=== PATIENT | male | born 1950 ===

== ENCOUNTER 2018-12-28 12:46 | Inpatient (IN) | payer MEDICAID, MEDICARE, OTHER ==
[~2018-12-28] VITALS: Ht 172.7 cm; Wt 106.0 kg
[~2018-12-28 12:46] MED LIST: LEVO25TA9 PO; LISI-662 PO; METF-960 PO; SERT50TA12 PO; SUCR1TAB PO
[2018-12-28 13:18] LABS: BASOPHILS % (AUTO) 1.3 % (0.0-2.0); EOSINOPHILS % (AUTO) 4.4 % (1.0-6.0); HEMATOCRIT 37.8 % (41-53); HEMOGLOBIN 12.3 g/dL (13.5-17.5); LYMPHOCYTES # (AUTO) 1.2 K/uL (1.0-4.8); LYMPHOCYTES % (AUTO) 18.8 % (22.0-44.0); MEAN CORPUSCULAR HEMOGLOBIN 28.8 pg (26.0-34.0); MEAN CORPUSCULAR HGB CONC 32.6 G/dL (31.0-37.0); MEAN CORPUSCULAR VOLUME 88 fL (80-100); MONOCYTES # (AUTO) 0.8 K/uL (0.1-1.0); MONOCYTES % (AUTO) 12.7 % (2.0-9.0); NEUTROPHILS # (AUTO) 3.9 K/uL (1.8-7.7); NEUTROPHILS % (AUTO) 62.8 % (40.0-70.0); PLATELET COUNT (AUTO) 231 K/uL (150-450); RED BLOOD CELL COUNT(AUTO) 4.29 MIL/uL (4.50-5.90); RED CELL DISTRIBUTION WIDTH 15.1 % (11.5-14.5)
[2018-12-28] MEDS ORDERED: CARV3 PO (13:20)
[2018-12-28] MEDS ORDERED: FINA5TAB41 PO (13:20)
[2018-12-28] MEDS ORDERED: EXEN2PEN SQ (13:20)
[2018-12-28] MEDS ORDERED: HYDR25TA PO (13:20)
[2018-12-28] MEDS ORDERED: LEVE500T53 PO (13:20)
[2018-12-28] MEDS ORDERED: LIRA0.6P SQ (13:20)
[2018-12-28] MEDS ORDERED: LOVA20 PO (13:20)
[2018-12-28] MEDS ORDERED: FURO20 PO (13:20)
[2018-12-28] MEDS ORDERED: DOXY50CA7 PO (13:20)
[2018-12-28] MEDS ORDERED: LISI-662 PO (13:20)
[2018-12-28 13:39] LABS: ANION GAP 6 mmol/L (8-16); B-TYPE NATRIURETIC PEPTIDE 31 pg/mL (0-100); CALCIUM, TOTAL 9.1 mg/dL (8.8-10.5); CARBON DIOXIDE 27 mmol/L (22-29); CHLORIDE 100 mmol/L (98-107); CREATININE 1.92 mg/dL (0.60-1.30); GLOMERULAR FILTR. RATE CALC 35 mL/min (>60); GLUCOSE,RANDOM 141 mg/dL (70-110); SODIUM SERUM 133 mmol/L (136-145); UREA NITROGEN, BLOOD 41 mg/dL (7-18)
[2018-12-28 13:51] LABS: ALANINE AMINOTRANSFERASE 49 U/L (12-78); ALBUMIN 2.7 g/dL (3.4-5.0); ALKALINE PHOSPHATASE 104 U/L (46-116); ASPARTATE AMINOTRANSFERASE 31 U/L (15-37); BILIRUBIN,TOTAL 0.3 mg/dL (0.1-1.0); TOTAL PROTEIN, SERUM 7.3 g/dL (6.4-8.2)
[2018-12-28 14:48] LABS: APPEARANCE,URINE CLOUDY (CLEAR); BILIRUBIN,URINE NEGATIVE (NEGATIVE); GLUCOSE, URINE (UA) NEGATIVE (NEGATIVE); KETONES,URINE NEGATIVE (NEGATIVE); LEUKOCYTE ESTERASE ,URINE MODERATE (NEGATIVE); NITRATE,URINE NEGATIVE (NEGATIVE); OCCULT BLOOD,URINE LARGE (NEGATIVE); PROTEIN,URINE SEE CONFIRM (NEGATIVE); UROBILINOGEN,URINE 0.2 mg/dL (<=1.0)
[2018-12-28 14:50] LABS: AMPHET/METH SCREEN,URINE NEGATIVE (NEGATIVE); BARBITURATE SCREEN, URINE NEGATIVE (NEGATIVE); BENZODIAZEPINES SCREEN,URINE NEGATIVE (NEGATIVE); CANNABINOID SCREEN,URINE NEGATIVE (NEGATIVE); COCAINE SCREEN,URINE NEGATIVE (NEGATIVE); METHADONE SCREEN, URINE NEGATIVE (NEGATIVE); OPIATE SCREEN,URINE NEGATIVE (NEGATIVE)
[2018-12-28 14:56] LABS: SULFOSALICYLIC ACID,URINE 1+ (Negative)
[2018-12-28 15:01] LABS: RBC,URINE >100 /HPF (0-2)
[2018-12-28 15:02] LABS: BACTERIA,URINE None Seen /HPF (None Seen); SQUAMOUS EPITHELIAL CELL,UR Few /LPF (None Seen); YEAST,URINE Many /HPF (None Seen)
[2018-12-28 15:03] LABS: PHENCYCLIDINE SCREEN,URINE NEGATIVE (NEGATIVE)
[2018-12-28] MEDS ORDERED: PHENYTOIN SODIUM 1,000 MG in SODIUM CHLORIDE 0.9% 150 ML IV ONE (15:15)
[2018-12-28] MEDS ORDERED: ACETAMINOPHEN 325 MG TABLET PO PRN ×2 (15:45)
[2018-12-28] MEDS ORDERED: BISACODYL 10 MG RECTAL RECTAL SUPPOSITORY PR PRN (15:45)
[2018-12-28] MEDS ORDERED: ONDANSETRON HCL 4 MG/2 ML VIAL IVP PRN (15:45)
[2018-12-28] MEDS ORDERED: 0.9% SODIUM CHLORIDE 10 ML SYRINGE IVP PRN (15:45)
[2018-12-28] MEDS ORDERED: DEXTROSE 50%-WATER 25 GM/50 ML SYRINGE IVP PRN (15:45)
[2018-12-28] MEDS: FLUCONAZOLE 100 MG TABLET PO SCH (16:19)
[2018-12-28] MEDS ORDERED: SODIUM CHLORIDE 0.9% 1,000 ML IV ONE (16:45)
[2018-12-28] MEDS ORDERED: LORazepam 2 MG/ML VIAL IVP PRN (16:45)
[2018-12-28 17:54] VITALS: BP 125/94
[2018-12-28] MEDS: ATORVASTATIN CALCIUM 40 MG TABLET PO SCH (19:00)
[2018-12-28] MEDS: ASPIRIN 325 MG TABLET PO SCH (19:00)
[2018-12-28 20:23] VITALS: BP 106/64
[2018-12-28] MEDS: LevETIRAcetam 500 MG TABLET PO SCH (21:00)
[2018-12-28] MEDS: DOCUSATE SODIUM 100 MG CAPSULE PO SCH (21:00)
[2018-12-28] MEDS: HEPARIN SODIUM,PORCINE 5,000 UNITS/ML VIAL SQ SCH (21:00)
[2018-12-28] MEDS: PHENYTOIN 100 MG/4 ML SUSPENSION UDCUP PO SCH (21:00)
[2018-12-28] MEDS: INSULIN LISPRO 100 UNITS/ML SQ PRN (21:04)
[2018-12-29 00:23] VITALS: BP 110/78
[2018-12-29 04:58] VITALS: BP 102/72
[2018-12-29 05:44] LABS: GLUCOMETER DEV NAME(LOC) 5S.1; GLUCOSE,POINT OF CARE 125 MG/DL (70-110)
[2018-12-29 05:44] LABS: GLUCOMETER DEV NAME(LOC) 5S.1; GLUCOSE,POINT OF CARE 121 MG/DL (70-110)
[2018-12-29 07:49] LABS: GLUCOMETER DEV NAME(LOC) 5N.1; GLUCOSE,POINT OF CARE 100 MG/DL (70-110)
[2018-12-29 08:20] VITALS: BP 131/83
[2018-12-29 08:20] LABS: BASOPHILS % (AUTO) 1.3 % (0.0-2.0); EOSINOPHILS % (AUTO) 4.8 % (1.0-6.0); HEMATOCRIT 35.9 % (41-53); HEMOGLOBIN 11.8 g/dL (13.5-17.5); LYMPHOCYTES # (AUTO) 1.2 K/uL (1.0-4.8); LYMPHOCYTES % (AUTO) 22.2 % (22.0-44.0); MEAN CORPUSCULAR HEMOGLOBIN 29.3 pg (26.0-34.0); MEAN CORPUSCULAR VOLUME 89 fL (80-100); MONOCYTES # (AUTO) 0.7 K/uL (0.1-1.0); MONOCYTES % (AUTO) 13.2 % (2.0-9.0); NEUTROPHILS # (AUTO) 3.1 K/uL (1.8-7.7); NEUTROPHILS % (AUTO) 58.5 % (40.0-70.0); PLATELET COUNT (AUTO) 178 K/uL (150-450); RED BLOOD CELL COUNT(AUTO) 4.03 MIL/uL (4.50-5.90); RED CELL DISTRIBUTION WIDTH 15.2 % (11.5-14.5)
[2018-12-29 08:32] LABS: CALCIUM, TOTAL 8.7 mg/dL (8.8-10.5); CREATININE 1.86 mg/dL (0.60-1.30); POTASSIUM 4.6 mmol/L (3.5-5.1)
[2018-12-29] MEDS: DOCUSATE SODIUM 100 MG CAPSULE PO SCH ×2 (08:40→20:40)
[2018-12-29] MEDS: HEPARIN SODIUM,PORCINE 5,000 UNITS/ML VIAL SQ SCH ×2 (08:41→20:41)
[2018-12-29] MEDS: ASPIRIN 325 MG TABLET PO SCH (08:41)
[2018-12-29] MEDS: ATORVASTATIN CALCIUM 40 MG TABLET PO SCH (08:42)
[2018-12-29] MEDS: FAMOTIDINE 20 MG TABLET PO SCH (08:42)
[2018-12-29] MEDS: FLUCONAZOLE 100 MG TABLET PO SCH (08:42)
[2018-12-29] MEDS: LevETIRAcetam 500 MG TABLET PO SCH ×2 (08:42→20:41)
[2018-12-29] MEDS ORDERED: ASPIRIN 81 MG CHEWABLE TABLET PO SCH (09:00)
[2018-12-29 11:10] VITALS: BP 111/79
[2018-12-29 17:19] LABS: GLUCOMETER DEV NAME(LOC) 5N.2; GLUCOSE,POINT OF CARE 119 MG/DL (70-110)
[2018-12-29 17:47] VITALS: BP 137/92
[2018-12-29] MEDS ORDERED: DOXY100C40 PO (17:52)
[2018-12-29 19:39] LABS: GLUCOMETER DEV NAME(LOC) 5N.1; GLUCOSE,POINT OF CARE 123 MG/DL (70-110)
[2018-12-29 19:59] VITALS: BP 127/81
[2018-12-29] MEDS: PHENYTOIN 100 MG/4 ML SUSPENSION UDCUP PO SCH (20:41)
[2018-12-29] MEDS: NYSTATIN 15 GM POWDER BOTTLE TP SCH (20:41)
[2018-12-29] MEDS: INSULIN LISPRO 100 UNITS/ML SQ PRN (21:10)
[2018-12-30] VITALS (7 sets, daily range): BP systolic 109–135; BP diastolic 19–92
[2018-12-30 00:39] LABS: GLUCOMETER DEV NAME(LOC) 5N.2; GLUCOSE,POINT OF CARE 138 MG/DL (70-110)
[2018-12-30] MEDS: INSULIN LISPRO 100 UNITS/ML SQ PRN ×2 (06:38→18:00)
[2018-12-30] MEDS: ATORVASTATIN CALCIUM 40 MG TABLET PO SCH (08:47)
[2018-12-30] MEDS: HEPARIN SODIUM,PORCINE 5,000 UNITS/ML VIAL SQ SCH ×2 (08:47→21:32)
[2018-12-30] MEDS: ASPIRIN 325 MG TABLET PO SCH (08:48)
[2018-12-30] MEDS: FAMOTIDINE 20 MG TABLET PO SCH (08:48)
[2018-12-30] MEDS: LevETIRAcetam 500 MG TABLET PO SCH ×2 (08:48→21:31)
[2018-12-30] MEDS: DOCUSATE SODIUM 100 MG CAPSULE PO SCH ×2 (08:48→21:29)
[2018-12-30] MEDS: FLUCONAZOLE 100 MG TABLET PO SCH (08:59)
[2018-12-30 12:48] LABS: CHOL/HDL RATIO 3.3 (4.2-7.3); THYROID STIMULATING HORMONE 3.65 uIU/mL (0.36-3.74)
[2018-12-30] MEDS: NYSTATIN 15 GM POWDER BOTTLE TP SCH ×2 (13:33→21:32)
[2018-12-30 19:54] LABS: GLUCOMETER DEV NAME(LOC) 5N.1; GLUCOSE,POINT OF CARE 184 MG/DL (70-110)
[2018-12-30 20:09] LABS: GLUCOMETER DEV NAME(LOC) 5N.2; GLUCOSE,POINT OF CARE 93 MG/DL (70-110)
[2018-12-30 20:09] LABS: GLUCOMETER DEV NAME(LOC) 5N.2; GLUCOSE,POINT OF CARE 157 MG/DL (70-110)
[2018-12-30] MEDS: PHENYTOIN 100 MG/4 ML SUSPENSION UDCUP PO SCH (22:25)
[2018-12-31 05:36] VITALS: BP 147/79
[2018-12-31 08:09] VITALS: BP 134/85
[2018-12-31] MEDS: HEPARIN SODIUM,PORCINE 5,000 UNITS/ML VIAL SQ SCH ×2 (08:31→21:27)
[2018-12-31] MEDS: DOCUSATE SODIUM 100 MG CAPSULE PO SCH ×2 (08:31→21:25)
[2018-12-31] MEDS: ASPIRIN 325 MG TABLET PO SCH (08:31)
[2018-12-31] MEDS: LevETIRAcetam 500 MG TABLET PO SCH ×2 (08:31→21:25)
[2018-12-31] MEDS: FAMOTIDINE 20 MG TABLET PO SCH (08:31)
[2018-12-31] MEDS: NYSTATIN 15 GM POWDER BOTTLE TP SCH ×3 (08:31→21:32)
[2018-12-31] MEDS: ATORVASTATIN CALCIUM 40 MG TABLET PO SCH (08:31)
[2018-12-31] MEDS: FLUCONAZOLE 100 MG TABLET PO SCH (08:34)
[2018-12-31] MEDS: INSULIN LISPRO 100 UNITS/ML SQ PRN (11:41)
[2018-12-31 12:10] VITALS: BP 116/75
[2018-12-31 16:01] VITALS: BP 110/67
[2018-12-31 19:50] LABS: GLUCOMETER DEV NAME(LOC) 5N.1; GLUCOSE,POINT OF CARE 104 MG/DL (70-110)
[2018-12-31 19:50] LABS: GLUCOMETER DEV NAME(LOC) 5N.2; GLUCOSE,POINT OF CARE 131 MG/DL (70-110)
[2018-12-31 19:50] LABS: GLUCOMETER DEV NAME(LOC) 5N.1; GLUCOSE,POINT OF CARE 183 MG/DL (70-110)
[2018-12-31] MEDS: PHENYTOIN 100 MG/4 ML SUSPENSION UDCUP PO SCH (21:24)
[2018-12-31 21:42] VITALS: BP 140/91
[2018-12-31 22:55] LABS: GLUCOMETER DEV NAME(LOC) 5S.1; GLUCOSE,POINT OF CARE 149 MG/DL (70-110)
[2018-12-31 22:55] LABS: GLUCOMETER DEV NAME(LOC) 5S.1; GLUCOSE,POINT OF CARE 129 MG/DL (70-110)
[2019-01-01 01:18] VITALS: BP 111/75
[2019-01-01 05:14] VITALS: BP 137/73
[2019-01-01 05:40] LABS: BASOPHILS % (AUTO) 0.8 % (0.0-2.0); EOSINOPHILS % (AUTO) 6.2 % (1.0-6.0); HEMATOCRIT 35.8 % (41-53); HEMOGLOBIN 11.8 g/dL (13.5-17.5); LYMPHOCYTES # (AUTO) 0.8 K/uL (1.0-4.8); LYMPHOCYTES % (AUTO) 17.4 % (22.0-44.0); MEAN CORPUSCULAR HEMOGLOBIN 29.1 pg (26.0-34.0); MEAN CORPUSCULAR VOLUME 88 fL (80-100); MONOCYTES # (AUTO) 0.4 K/uL (0.1-1.0); MONOCYTES % (AUTO) 9.2 % (2.0-9.0); NEUTROPHILS # (AUTO) 3.2 K/uL (1.8-7.7); NEUTROPHILS % (AUTO) 66.4 % (40.0-70.0); PLATELET COUNT (AUTO) 174 K/uL (150-450); RED BLOOD CELL COUNT(AUTO) 4.06 MIL/uL (4.50-5.90); RED CELL DISTRIBUTION WIDTH 15.3 % (11.5-14.5)
[2019-01-01 05:49] LABS: CREATININE 1.57 mg/dL (0.60-1.30); POTASSIUM 4.2 mmol/L (3.5-5.1)
[2019-01-01 07:58] VITALS: BP 160/75
[2019-01-01] MEDS: HEPARIN SODIUM,PORCINE 5,000 UNITS/ML VIAL SQ SCH (08:14)
[2019-01-01] MEDS: ASPIRIN 325 MG TABLET PO SCH (08:14)
[2019-01-01] MEDS: FLUCONAZOLE 100 MG TABLET PO SCH (08:14)
[2019-01-01] MEDS: LevETIRAcetam 500 MG TABLET PO SCH (08:14)
[2019-01-01] MEDS: DOCUSATE SODIUM 100 MG CAPSULE PO SCH (08:15)
[2019-01-01] MEDS: ATORVASTATIN CALCIUM 40 MG TABLET PO SCH (08:15)
[2019-01-01] MEDS: FAMOTIDINE 20 MG TABLET PO SCH (08:15)
[2019-01-01] MEDS: NYSTATIN 15 GM POWDER BOTTLE TP SCH (09:37)
[2019-01-01 11:45] VITALS: BP 115/82
[2019-01-01 15:27] VITALS: BP 142/85
[2019-01-02 05:30] LABS: GLUCOMETER DEV NAME(LOC) 5S.2A; GLUCOSE,POINT OF CARE 113 MG/DL (70-110)
[2019-01-02] MEDS ORDERED: ASPIRIN 81 MG CHEWABLE TABLET PO SCH (09:00)
== END 2019-01-01 16:20 | DRG 64 ==
LOC: EMS 12:46 → 5S 16:15 → EMS 17:11
PROVIDERS: ADMIT Internal Medicine; ATTEND Internal Medicine
DX: I63.9 Cerebral infarction, unspecified (principal); E43 Unspecified severe protein-calorie malnutrition; N17.9 Acute kidney failure, unspecified; I69.354 Hemiplegia and hemiparesis following cerebral infarction affecting left non-dominant side; G40.909 Epilepsy, unspecified, not intractable, without status epilepticus; I25.10 Atherosclerotic heart disease of native coronary artery without angina pectoris; N18.3 Chronic kidney disease, stage 3 (moderate); R47.81 Slurred speech; R31.9 Hematuria, unspecified; F01.50 Vascular dementia, unspecified severity, without behavioral disturbance, psychotic disturbance, mood disturbance, and anxiety; E11.22 Type 2 diabetes mellitus with diabetic chronic kidney disease; R62.7 Adult failure to thrive; I12.9 Hypertensive chronic kidney disease with stage 1 through stage 4 chronic kidney disease, or unspecified chronic kidney disease; Z79.82 Long term (current) use of aspirin; Z79.899 Other long term (current) drug therapy; Z68.35 Body mass index [BMI] 35.0-35.9, adult
CPT/HCPCS: 70450; 70544; 70551; 83036; 84443; 87081; 92610; 93005; 93306; 93880; 97112; 97162; 97167; 97530; 97535; G0378; G0480; J1165; J1644; J7030; J7050